=== PATIENT | female | born 1975 | race African-American/Black ===

== ENCOUNTER 2017-01-10 17:12 | Emergency (ER) | payer OTHER ==
[~2017-01-10] VITALS: Ht 170.2 cm; Wt 82.1 kg
[2017-01-10 18:36] LABS: HEMATOCRIT 35.7 % (36.0-46.0); MCHC 31.7 G/DL (30.0-36.0); MCV 82.1 FL (83-99); MEAN PLAT.VOLUME 9.8 uM^3 (9.5-12.4); PLATELET COUNT 332 K/uL (156-360); RBC DIS.WIDTH-CV 18.6 % (11.8-14.6); RBC DIS.WIDTH-SD 54.7 % (39-53); RED BLOOD COUNT 4.35 M/uL (3.80-5.20); WHITE BLOOD COUNT 5.6 K/uL (4.1-10.2)
[2017-01-10 18:51] LABS: CHLORIDE 105 mEq/L (99-109); POTASSIUM 4.8 mEq/L (3.7-5.4); SODIUM 138 mEq/L (136-147)
[2017-01-10 18:52] LABS: GLUCOSE 93 mg/dL (70-99)
[2017-01-10 18:54] LABS: ANION GAP 8 MEQ/L (2-14)
[2017-01-10 18:56] LABS: GFR ESTIMATE (CALCULATED) > 59 mL/min/
[2017-01-10 18:57] LABS: UREA NITROGEN (BUN) 16 mg/dL (9-23)
[2017-01-10 19:05] LABS: QUANTITATIVE HCG < 4.0 MIU/ML
[2017-01-10 19:18] VITALS: BP 164/101
== END 2017-01-10 19:05 | disposition home or self-care (01) ==
LOC: EME 17:12
DX: K92.2 Gastrointestinal hemorrhage, unspecified (principal); D64.9 Anemia, unspecified
CPT/HCPCS: 80048; 84702; 85027; 86850; 86870; 86900; 86901; 86905; 99281; 99284